=== PATIENT | female | born 1995 | race Caucasian/White ===

== ENCOUNTER → 2017-03-31 22:02 | Observation (INO) ==
[2017-03-31 21:35] LABS: Amphetamine Screen,Urine Negative ng/mL (Cutoff=1000); Barbiturate Screen,Urine Negative ng/mL (Cutoff=200); Benzodiazepines Screen,Urine Negative ng/mL (Cutoff=200); Cannabinoid Screen,Urine Negative ng/mL (Cutoff = 50); Cocaine Screen,Urine Negative ng/mL (Cutoff= 300); Opiate Screen,Urine Negative ng/mL (Cutoff=300); Phencyclidine Screen,Urine Negative ng/mL (Cutoff=25)
--- NOTE | 2017-03-31 21:40 | OB/GYN Progress Note ---
Date of Encounter: 03/31/17 Time of Encounter: 21:37 - Assessment and Plan (1) Pelvic pressure in Current Visit: Yes Status: Acute Constant pelvic pressure today. Denies sharp or intolerable pain. No LOF, contractions, vaginal bleeding, or vaginal discharge FHT - baseline 120's with moderate variability and accels - Category I, NST reactive Pt may be discharged home with labor precautions (2) 37 weeks gestation of Current Visit: Yes Status: Acute Subjective - Subjective Principal diagnosis: Pelvic Pressure Interval history: Pt is a 21 year old female at 37w1d presenting to L&D with the complaint of constant pelvic pressure. She reports good movement. Denies contractions, loss of fluid, vaginal bleeding, or vaginal discharge. She reports that there have been no complications with this . She denies fevers, chills, headaches, blurry vision, chest pain, dyspnea, abdominal pain, dysuria, or edema. Antepartum ROS: movement normal, no loss of fluid, no vaginal bleeding, no contractions Objective - Vital Signs Vital Signs: Intake and Output 03/31/17 03/31/17 03/31/17 07:59 15:59 23:59 Other: Weight 104 kg Patient Weight 03/31/17 23:59 Weight 104 kg - Exam FHR: auscultation normal, category 1 Auscultation: bilateral: normal Abdomen: Present: normal appearance, soft, gravid Uterus: Present: normal, firm
== END | disposition home or self-care (01) ==
LOC: 1NENULAB
PROVIDERS: ADMIT Student in an Organized Health Care Education/Training Program; ATTEND Student in an Organized Health Care Education/Training Program

== ENCOUNTER → 2017-04-05 10:09 | Observation (INO) ==
--- NOTE | 2017-04-04 18:40 | OB/GYN History & Physical ---
Date of Encounter: 04/04/17 Time of Encounter: 18:37 Assessment and Plan (1) History of biophysical profile with non-stress test Current visit: Yes Status: Acute BPP score 4/10 in office today. Plan for continuous monitoring through the night with repeat BPP in am. POC per Dr. Hu (2) Decreased movement affecting management of mother, antepartum Current visit: Yes Status: Acute Qualifiers: Fetus number: single or unspecified fetus Qualified Code(s): O36.8190 - Decreased movements, unspecified trimester, not applicable or unspecified (3) 37 weeks gestation of Current visit: No Status: Acute History of Present Illness Chief complaint: BPP 4/10 HPI: Ms. Uribe is a 21 year old female presenting at 37w5d from the office for BPP 4/10. Pt had NST for decreased movement today at routine visit. NST was non-reactive so a BPP was performed. The BPP score was 4/10 with points off for breathing, tone, and non-reactive NST. Pt denies feeling much movement still but no other complaints today. Past Med Surg Social Fam HX - Past Medical History Medical history: no medical history Psychiatric history: no psych history - Past Surgical History Surgical History: no surgical history - Social History Smoking Status: Former smoker Smokeless Tobacco Status: No Alcohol use: none Drug use: none - Family History Mother Adopted: No Living Status: Still Living Hx Family Cardiac Disorders: No Hx Family Respiratory Disorders: No Hx Family Cancer: No Hx Family GI Disorders: No Hx Family Genitourinary Disorders: No Hx Family Endocrine Disorder: No Hx Family Musculoskeletal Disorders: No Hx Family Neuromuscular Disorders: No Hx Family Neurologic Disorders: No Hx Family HEENT Disorders: No Hx Family Autoimmune Disorders: No Hx Family Reproductive Disorders: No Hx Family Psychosocial Disorders: No Hx Family Medical Disorders: No Obstetrical History - Pregnancies : 1 Medications and Allergies Vit/Iron Fumarate/FA [ Tablet] 1 each PO DAILY 03/31/17 [ History] 3 Allergy/AdvReac Type Severity Reaction Status Date / Time No Known Allergies Allergy Verified 03/31/17 21:06 Review of System OB All systems PM: reviewed and no additional remarkable complaints except as stated Exam - Constitutional Constitutional: well developed, well nourished, no acute distress - HEENT HEENT: Mucus Membranes Moist - Lungs Respiratory exam: CTAB - Cardiovascular Cardiovascular exam: RRR, +S1, +S2 - Abdomen Abdomen: Present: gravid, non tender - Extremities Extremities exam: normal inspection, pedal edema (mild edema bilaterally) - Vulva Vulva: bilateral: normal - Cervix Dilation: 2 (per Dr. Martinez in office) Effacement: 80 Station: -3 - Uterus Uterus exam: Present: normal size - Anus/Rectum Anus/Rectum: Present: normal perianal skin Results Result Diagrams: 04/04/17 16:26 All other labs normal. - VTE Reasons for not Prescribing Prophylaxis: Treatment not Indicated - Low risk for VTE
[2017-04-04 18:44] LABS: Basophils % 0.2 %; Eosinophils # 0.2 K/mcL (0.0-0.6); Eosinophils % 1.1 %; Hematocrit 37.7 % (35.3-44.9); Hemoglobin 12.7 g/dL (11.5-15.4); Immature Granulocytes % 0.8 % (0-4); Lymphocytes # 3.1 K/mcL (0.6-4.6); Lymphocytes % 21.8 %; Mean Corpuscular HGB Conc 33.7 g/dL (31.6-35.5); Mean Corpuscular Hemoglobin 30.7 pg (28.0-33.3); Mean Corpuscular Volume 91.1 fL (83.0-100.0); Mean Platelet Volume 10.2 fL (9.4-12.4); Monocytes # 0.9 K/mcL (0.0-1.3); Neutrophils # 9.9 K/mcL (1.6-8.9); Platelet Count 271 K/mcL (140-400); Red Blood Count 4.14 M/mcL (3.82-4.97); Red Cell Distribution Width 12.4 % (11.5-14.5); Segmented Neutrophils % 70.1 %
[2017-04-04 18:54] LABS: Amphetamine Screen,Urine Negative ng/mL (Cutoff=1000); Barbiturate Screen,Urine Negative ng/mL (Cutoff=200); Benzodiazepines Screen,Urine Negative ng/mL (Cutoff=200); Cannabinoid Screen,Urine Negative ng/mL (Cutoff = 50); Cocaine Screen,Urine Negative ng/mL (Cutoff= 300); Opiate Screen,Urine Negative ng/mL (Cutoff=300); Phencyclidine Screen,Urine Negative ng/mL (Cutoff=25)
--- NOTE | 2017-04-04 20:53 | OB/GYN Progress Note ---
Date of Encounter: 04/04/17 Time of Encounter: 20:51 - Assessment and Plan (1) History of biophysical profile with non-stress test Current Visit: Yes Status: Acute BPP score 4/10 in office today. Plan for continuous monitoring through the night with repeat BPP in am. POC per Dr. uH (2) Decreased movement affecting management of mother, antepartum Current Visit: Yes Status: Acute Qualifiers: Fetus number: single or unspecified fetus Qualified Code(s): O36.8190 - Decreased movements, unspecified trimester, not applicable or unspecified (3) 37 weeks gestation of Current Visit: No Status: Acute Subjective - Subjective Interval history: Pt denies complaints at this time. Antepartum ROS: no loss of fluid, no vaginal bleeding, no contractions Objective - Vital Signs Vital Signs: Intake and Output 04/04/17 04/04/17 04/04/17 07:59 15:59 23:59 Other: Weight 103.2 kg Patient Weight 04/04/17 23:59 Weight 103.2 kg - Exam FHR: category 1 FHR comments: NST reactive at this time Auscultation: bilateral: normal Abdomen: Present: soft, gravid - Labs Labs: Abnormal lab results WBC 14.1 K/mcL (4.3-11.1) H 04/04/17 16:26 Neutrophils # 9.9 K/mcL (1.6-8.9) H 04/04/17 16:26
--- NOTE | 2017-04-05 08:14 | Discharge Summary ---
Date of Encounter: 04/05/17 Time of Encounter: 08:13 - Discharge Diagnosis (1) History of biophysical profile with non-stress test Priority: Primary Status: Acute Comments: Pt presented from office due to BPP 07/26 for decreased movement Monitoring - Baseline 120 with variability and accels - Category I - NST reactive overnight Discussed with Dr. Hoover and Dr. Cortez - discharge patient and repeat BPP in office this AM (2) 37 weeks gestation of Priority: Secondary Status: Acute - Discharge Medications Home Medications: Vit/Iron Fumarate/FA [ Tablet] 1 each PO DAILY 03/31/17 [ History] Allergies/Adverse Reactions: 3 Allergy/AdvReac Type Severity Reaction Status Date / Time No Known Allergies Allergy Verified 03/31/17 21:06 Data Procedures and tests throughout hospitalization: Laboratory Tests 04/04/17 04/04/17 16:26 18:05 WBC 14.1 H RBC 4.14 Hgb 12.7 Hct 37.7 MCV 91.1 MCH 30.7 MCHC 33.7 RDW 12.4 Plt Count 271 MPV 10.2 Immature Gran % 0.8 Seg Neutrophils % 70.1 Lymphocytes % 21.8 Monocytes % 6.0 Eosinophils % 1.1 Basophils % 0.2 Neutrophils # 9.9 H Lymphocytes # 3.1 Monocytes # 0.9 Eosinophils # 0.2 Basophils # 0.0 Urine Opiates Screen Negative Ur Barbiturates Screen Negative Ur Phencyclidine Scrn Negative Ur Amphetamines Screen Negative U Benzodiazepines Scrn Negative Urine Cocaine Screen Negative U Marijuana (THC) Screen Negative Labs on day of discharge: Labs from last 24 hours 04/04/17 04/04/17 18:05 16:26 WBC 14.1 H RBC 4.14 Hgb 12.7 Hct 37.7 MCV 91.1 MCH 30.7 MCHC 33.7 RDW 12.4 Plt Count 271 MPV 10.2 Immature Gran % 0.8 Seg Neutrophils % 70.1 Lymphocytes % 21.8 Monocytes % 6.0 Eosinophils % 1.1 Basophils % 0.2 Neutrophils # 9.9 H Lymphocytes # 3.1 Monocytes # 0.9 Eosinophils # 0.2 Basophils # 0.0 Urine Opiates Screen Negative Ur Barbiturates Screen Negative Ur Phencyclidine Scrn Negative Ur Amphetamines Screen Negative U Benzodiazepines Scrn Negative Urine Cocaine Screen Negative U Marijuana (THC) Screen Negative Date of admission: 04/04/17 17:40 Discharging clinician: Tae Mcfadden Anticipated date of discharge: 04/05/17 - Patient Status Disposition: Home, Self-Care Condition: Good Functional capacity at discharge: independent ambulation Overall status at discharge: patient is back to baseline - Discharge Instructions Additional Instructions: Follow-up today in office for BPP - Diet and Activity Activity: increase activity as tolerated Diet: advance to your usual diet Hospital Course [facility] [place] Time Attestation: Total time spent providing and/or coordinating discharge services: Exam - Constitutional General appearance IM: A&O X 3, no acute distress - Respiratory Respiratory exam: Present: CTAB - Cardiovascular Cardiovascular exam IM: Present: RRR, +S1, +S2 - GI/Abdominal GI/Abdominal exam IM: normal bowel sounds, no peritoneal signs - Extremities Exam Extremities exam IM: Present: normal capillary refill, normal inspection - Neurological Exam Neurological exam: alert, no focal deficits - VTE Reasons for not Prescribing Prophylaxis: Treatment not Indicated - Low risk for VTE - Attending Attestation I examined this patient and my medical decision-making was reviewed with the Resident Physician. I agree with the documented findings, disposition and treatment plan as described. lApesh Raines CNM
[~2017-04-05 10:09] MED LIST: *HR* Nalbuphine 20 MG/ML AMPUL IVP PRN; Acetaminophen 325 MG TABLET PO ONE; Famotidine 20 MG/2 ML VIAL IVP PRN; Metoclopramide 10 MG/2 ML VIAL IVP PRN; Naloxone 0.4 MG/ML INJ IVP PRN; Ondansetron 4 MG/2 ML VIAL IVP PRN; Ringers Solution, Lactated 1,000 ML IVC SCH
== END | disposition home or self-care (01) ==
LOC: 1NENULAB
PROVIDERS: ADMIT Obstetrics & Gynecology; ATTEND Obstetrics & Gynecology

== ENCOUNTER 2017-04-05 17:15 | Inpatient (IN) ==
[~2017-04-05 17:15] MED LIST changes: -Acetaminophen 325 MG TABLET PO ONE
[2017-04-05] MEDS ORDERED: Penicillin G Potassium 5,000,000 UNIT in 0.9 % Sodium Chloride Mini Bag 100 ML IVPB ONE (17:28)
[2017-04-05 17:32] LABS: Basophils % 0.2 %; Eosinophils % 0.2 %; Hematocrit 38.8 % (35.3-44.9); Hemoglobin 13.1 g/dL (11.5-15.4); Immature Granulocytes % 0.5 % (0-4); Lymphocytes # 2.8 K/mcL (0.6-4.6); Lymphocytes % 14.4 %; Mean Corpuscular HGB Conc 33.8 g/dL (31.6-35.5); Mean Platelet Volume 10.1 fL (9.4-12.4); Monocytes # 1.1 K/mcL (0.0-1.3); Monocytes % 5.6 %; Neutrophils # 15.3 K/mcL (1.6-8.9); Platelet Count 322 K/mcL (140-400); Red Blood Count 4.36 M/mcL (3.82-4.97); Red Cell Distribution Width 12.3 % (11.5-14.5); Segmented Neutrophils % 79.1 %
[2017-04-05] MEDS ORDERED: Oxytocin 20 units/ LR 1000 mL 20 UNIT/1,000 ML BAG IVC ONE (17:53)
[2017-04-05] MEDS ORDERED: Lidocaine -MPF 1% 2 ML VIAL ONE (18:05)
[2017-04-05] MEDS ORDERED: Lidocaine 1% 20 ML MDV ONE (18:07)
--- NOTE | 2017-04-05 18:49 | OB/GYN History & Physical ---
Date of Encounter: 04/05/17 Time of Encounter: 17:10 Assessment and Plan (1) Uterine contractions Current visit: Yes Status: Acute Pt reports regular contractions approximately 5 minutes apart Admit to L&D Monitoring - baseline 145 with variability - Category I Cervix check 4cm per RN - 1-2cm this AM SROM upon admission to the hospital Expect (2) 37 weeks gestation of Current visit: No Status: Acute History of Present Illness Chief complaint: Contractions HPI: Ms. Uribe is a 21 year old female at 37w7d presenting to L&D with contractions, back pain, and pelvic pressure. She denies LOF, vaginal bleeding, or vaginal discharge. She reports good movement. She reports there were no complications with this . 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 She denies other medical history. She denies fevers, chills, headaches, blurry vision, chest pain, dyspnea, or dysuria. Blood type A+ GBS positive Rubella Immune Varicella Non-immune All other serologies negative Past Med Surg Social Fam HX - Past Medical History Medical history: no medical history Psychiatric history: no psych history - Past Surgical History Surgical History: no surgical history - Social History Smoking Status: Former smoker Smokeless Tobacco Status: No Alcohol use: none Drug use: none - Family History Mother Adopted: No Living Status: Still Living Hx Family Cardiac Disorders: No Hx Family Respiratory Disorders: No Hx Family Cancer: No Hx Family GI Disorders: No Hx Family Genitourinary Disorders: No Hx Family Endocrine Disorder: No Hx Family Musculoskeletal Disorders: No Hx Family Neuromuscular Disorders: No Hx Family Neurologic Disorders: No Hx Family HEENT Disorders: No Hx Family Autoimmune Disorders: No Hx Family Reproductive Disorders: No Hx Family Psychosocial Disorders: No Hx Family Medical Disorders: No Obstetrical History - Pregnancies : 1 Para: 0 Term: 0 : 0 Ab's: 0 Livin Medications and Allergies Vit/Iron Fumarate/FA [ Tablet] 1 each PO DAILY 03/31/17 [ History] 3 Allergy/AdvReac Type Severity Reaction Status Date / Time No Known Allergies Allergy Verified 03/31/17 21:06 Review of System OB All systems PM: reviewed and no additional remarkable complaints except as stated Exam - Constitutional Constitutional: well developed, well nourished, average body habitus, mild distress - HEENT HEENT: Normocephaly, Mucus Membranes Moist - Lungs Respiratory exam: CTAB - Cardiovascular Cardiovascular exam: RRR, +S1, +S2 - Abdomen Abdomen: Present: bowel sounds normal, gravid, non tender - Extremities Extremities exam: normal capillary refill, normal inspection, pedal edema (mild bilaterally) - Vulva Vulva: bilateral: normal - Vagina Vagina: Present: normal moisture - Cervix Dilation: 4 (per RN) - Uterus Uterus exam: Present: normal size, normal contour - Anus/Rectum Anus/Rectum: Present: normal perianal skin Results Result Diagrams: 04/05/17 17:22 Abnormal lab results WBC 19.3 K/mcL (4.3-11.1) H 04/05/17 17:22 Neutrophils # 15.3 K/mcL (1.6-8.9) H 04/05/17 17:22 All other labs normal. - VTE Reasons for not Prescribing Prophylaxis: Treatment not Indicated - Low risk for VTE
--- NOTE | 2017-04-05 19:04 | OB/GYN Procedure Note ---
Delivery - Delivery Date: 04/05/17 Provider: Filiberto Cortez (Tae Mcfadden assist) Intrapartum events: none Delivery induction: none Delivery monitor: external FHT, external uterine Anesthesia: local Estimated Blood Loss: 300 - Infant (s) A Infant Delivery Date: 04/05/17 Delivery Time: 17:58 Presentation: vertex Position: SPENCER Gender: Female Viability: Viable Pounds: 6 Ounces: 12 Weight Gram: 3.05 kg at 1 minute: 8 at 5 mins: 9 Shoulder Dystocia: not encountered Placenta: spontaneous Cord: 3 umbilical vessels - Repair Laceration Description: Perineal - 1st Degree, Labial - Complications Delivery complications: none Delivery comments: Patient progressed quickly to complete after SROM and pushed to a spontaneous vaginal delivery of viable female in SPENCER position. placed and maternal abdomen. No nuchal cord, meconium, or shoulder dystocia encountered. Pulsations in the cord ceased and cord was clamped and cut. Apgars were 8 & 9 at 1 & 5 minutes. Spontaneous delivery of placenta that appears grossly intact with 3 vessel cord. Perineal laceration was repaired with 3-0 vicryl. Labial laceration was hemostatic and was left to heal by secondary intention. EBL 300ml. and mother in recovery. - Disposition Mom disposition: stable in LDR disposition: stable in LDR
[2017-04-05] MEDS ORDERED: Oxytocin 20 units/ LR 1000 mL 20 UNIT/1,000 ML BAG IVC SCH (19:47)
[2017-04-05] MEDS ORDERED: Acetaminophen 325 MG TABLET PO PRN (19:47)
[2017-04-05] MEDS ORDERED: Penicillin G Potassium 2,500,000 UNIT in D5% in Water 100 ML IVPB SCH (20:00)
[2017-04-05] MEDS: Ibuprofen 600 MG TABLET PO PRN (21:08)
[2017-04-06 04:39] LABS: Basophils % 0.2 %; Eosinophils # 0.1 K/mcL (0.0-0.6); Eosinophils % 0.4 %; Hematocrit 33.3 % (35.3-44.9); Immature Granulocytes % 0.6 % (0-4); Lymphocytes % 15.4 %; Mean Corpuscular HGB Conc 33.3 g/dL (31.6-35.5); Mean Corpuscular Hemoglobin 30.1 pg (28.0-33.3); Mean Corpuscular Volume 90.2 fL (83.0-100.0); Mean Platelet Volume 10.3 fL (9.4-12.4); Monocytes # 1.3 K/mcL (0.0-1.3); Monocytes % 6.5 %; Neutrophils # 14.9 K/mcL (1.6-8.9); Platelet Count 244 K/mcL (140-400); Red Blood Count 3.69 M/mcL (3.82-4.97); Red Cell Distribution Width 12.3 % (11.5-14.5); Segmented Neutrophils % 76.9 %
[2017-04-06 04:40] LABS: Hemoglobin 11.1 g/dL (11.5-15.4)
[2017-04-06] MEDS: Ibuprofen 600 MG TABLET PO PRN (06:18)
[2017-04-06] MEDS ORDERED: CeFAZolin Premix DUPLEX 2,000 MG/50 ML BAG IVPB ONE (08:02)
[2017-04-06] MEDS ORDERED: Famotidine 20 MG/2 ML VIAL IVP ONE (08:02)
[2017-04-06] MEDS ORDERED: Metoclopramide 10 MG/2 ML VIAL IVP ONE (08:02)
[2017-04-06] MEDS ORDERED: Oxytocin 20 units/ LR 1000 mL 20 UNIT/1,000 ML BAG IVC SCH (08:15)
[2017-04-06] MEDS ORDERED: Ringers Solution, Lactated 1,000 ML IVC SCH (08:15)
[2017-04-06] MEDS ORDERED: Prenatal Vit/FA 1 EACH TABLET PO SCH (09:00)
--- NOTE | 2017-04-06 09:10 | Discharge Summary ---
Date of Encounter: 04/06/17 Time of Encounter: 09:08 - Discharge Diagnosis (1) Vaginal delivery Priority: Primary Status: Acute Comments: Meeting all milestones. Pain well managed on po pain medication, tolerates regular diet, bottle feeding desires discharge. - Discharge Medications Prescriptions: Ibuprofen [Motrin] 600 mg PO Q6HR PRN #60 tablet PRN Reason: Cramping Docusate [Colace] 100 mg PO BID #30 capsule Home Medications: Vit/Iron Fumarate/FA [ Tablet] 1 each PO DAILY 03/31/17 [ History] Acetaminophen [Tylenol] 650 mg PO Q6HR PRN tablet 04/06/17 [Rx] Docusate [Colace] 100 mg PO BID #30 capsule 04/06/17 [Rx] Ibuprofen [Motrin] 600 mg PO Q6HR PRN #60 tablet 04/06/17 [Rx] Vit/FA 1 each PO DAILY tablet 04/06/17 [Rx] Allergies/Adverse Reactions: 3 Allergy/AdvReac Type Severity Reaction Status Date / Time No Known Allergies Allergy Verified 03/31/17 21:06 Data Procedures and tests throughout hospitalization: Laboratory Tests 04/05/17 04/06/17 17:22 04:16 WBC 19.3 H 19.3 H RBC 4.36 3.69 L Hgb 13.1 11.1 L D Hct 38.8 33.3 L MCV 89.0 90.2 MCH 30.0 30.1 MCHC 33.8 33.3 RDW 12.3 12.3 Plt Count 322 244 MPV 10.1 10.3 Immature Gran % 0.5 0.6 Seg Neutrophils % 79.1 76.9 Lymphocytes % 14.4 15.4 Monocytes % 5.6 6.5 Eosinophils % 0.2 0.4 Basophils % 0.2 0.2 Neutrophils # 15.3 H 14.9 H Lymphocytes # 2.8 3.0 Monocytes # 1.1 1.3 Eosinophils # 0.0 0.1 Basophils # 0.0 0.0 Labs on day of discharge: Labs from last 24 hours 04/06/17 04/05/17 04:16 17:22 WBC 19.3 H 19.3 H RBC 3.69 L 4.36 Hgb 11.1 L D 13.1 Hct 33.3 L 38.8 MCV 90.2 89.0 MCH 30.1 30.0 MCHC 33.3 33.8 RDW 12.3 12.3 Plt Count 244 322 MPV 10.3 10.1 Immature Gran % 0.6 0.5 Seg Neutrophils % 76.9 79.1 Lymphocytes % 15.4 14.4 Monocytes % 6.5 5.6 Eosinophils % 0.4 0.2 Basophils % 0.2 0.2 Neutrophils # 14.9 H 15.3 H Lymphocytes # 3.0 2.8 Monocytes # 1.3 1.1 Eosinophils # 0.1 0.0 Basophils # 0.0 0.0 Date of admission: 04/05/17 17:15 Primary care physician: Nazia De La Vega CNP Consults: 04/05/17 19:47 Consult to Regional Sales Director [CONS] Routine Comment: Vaginal delivery, consult needed Anticipated date of discharge: 04/06/17 - Patient Status Disposition: Home, Self-Care Condition: Good Functional capacity at discharge: independent ambulation Overall status at discharge: patient is back to baseline - Discharge Instructions Follow Up With: Nazia De La Vega CNP [Primary Care Provider] - Vera Martinez DO [Partnered Physician] - - Diet and Activity Activity: resume usual activities as tolerated Diet: regular diet Hospital Course Reason for admission: active labor Delivery: Episiotomy: none Laceration: 1st degree Other procedures: none complications: none Discharge diagnosis: IUP at term delivered [place] baby: female Hospital course: Delivery - Delivery Date: 04/05/17 Provider: Filiberto Cortez (Tae Mcfadden [facility]) Intrapartum events: none Delivery induction: none Delivery monitor: external FHT, external uterine Anesthesia: local Estimated Blood Loss: 300 - Infant (s) A Delivery Date: 04/05/17 Delivery Time: 17:58 Presentation: vertex Position: SPENCER Gender: Female Viability: Viable Pounds: 6 Ounces: 12 Weight Gram: 3.05 kg at 1 minute: 8 at 5 mins: 9 Shoulder Dystocia: not encountered Placenta: spontaneous Cord: 3 umbilical vessels - Repair Laceration Description: Perineal - 1st Degree, Labial - Complications Delivery complications: none Delivery comments: Patient progressed quickly to complete after SROM and pushed to a spontaneous vaginal delivery of viable female in SPENCER position. Infant placed and maternal abdomen. No nuchal cord, meconium, or shoulder dystocia encountered. Pulsations in the cord ceased and cord was clamped and cut. Apgars were 8 & 9 at 1 & 5 minutes. Spontaneous delivery of placenta that appears grossly intact with 3 vessel cord. Perineal laceration was repaired with 3-0 vicryl. Labial laceration was hemostatic and was left to heal by secondary intention. EBL 300ml. Infant and mother in recovery. - Disposition Mom disposition: stable in PP and appropriate for discharge Time Attestation: Total time spent providing and/or coordinating discharge services: Time Spent: Less than 30 minutes Exam - Constitutional Vitals: Temp Pulse Resp BP Pulse Ox 97.6 F 76 14 109/74 98 04/06/17 04:00 04/06/17 04:00 04/06/17 04:00 04/06/17 04:00 04/06/17 04:00 General appearance IM: A&O X 3 - Respiratory Respiratory exam: Present: CTAB - Cardiovascular Cardiovascular exam IM: Present: RRR - GI/Abdominal GI/Abdominal exam IM: normal bowel sounds, soft - Uterine Tone: Firm Uterus Position: At Umbilicus - Extremities Exam Extremities exam IM: Present: normal capillary refill, normal inspection - Neurological Exam Neurological exam: normal gait, oriented X3 - Psychiatric Additional comments: Reports good mood.
[2017-04-06 10:39] VITALS: BP 105/70
== END 2017-04-06 15:33 | disposition home or self-care (01) | DRG 560 ==
LOC: 1NENULAB → 1NENUOBS 21:05
PROVIDERS: ADMIT Advanced Practice Midwife; ATTEND Advanced Practice Midwife